=== PATIENT | female | born 1975 | race Caucasian/White ===

== ENCOUNTER 2017-09-15 22:36 | Observation (INO) | payer BC ==
[2017-09-15] MEDS ORDERED: Sodium Chloride 0.9% 1000 ML 1,000 ML IV STA (23:10)
[2017-09-15] MEDS ORDERED: Zofran 4 MG/2 ML VIAL IV ONE (23:10)
[2017-09-15] MEDS ORDERED: TORAdol 30 mg Injection IV ONE (23:10)
--- NOTE | 2017-09-15 23:15 | ERPHSYRPT ---
- History of Present Illness Time Seen by Provider: 09/15/17 23:03 Source: patient Exam Limitations: no limitations Patient Subjective Stated Complaint: Pt states "I think I have a kidney stone. My right lower back hurts and has hurt since . The pain comes and goes. " Triage Nursing Assessment: Pt alert and oriented X 3, skin pwd. PT ambulates with an upright steady gait, able to speak in clear full sentences. Physician History: 41 y/o female comes to the ER with complaints of right flank pain since . Pt describes the pain as sharp, intermittent, 8/10, with radiation to groin and not relieved by naproxen. Pt also admits to nausea but no vomiting, fever, chills, constipation or diarrhea. Pt does admit to having the sensation that she has to urinate and also has burning with urination. Pt has had a kidney stone in the past. Timing/Duration: day(s) Activites at Onset: none Quality: aching Onset Location: right flank Pain Radiation: groin Severity of Pain-Max: severe Severity of Pain-Current: severe Prior abdominal problems: none Sexual intercourse history: single partner Modifying Factors: Improves With: nothing Associated Symptoms: nausea Allergies/Adverse Reactions: cephalexin monohydrate [From Keflex] Allergy (Severe, Verified 06/14/16 14:46) Hives Iodinated Contrast- Oral and IV Dye [Iodinated Contrast Media - IV Dye] Allergy (Severe, Verified 06/14/16 14:46) Hives tramadol Allergy (Severe, Verified 06/14/16 14:46) Hives Home Medications: Alprazolam 1 mg [Xanax 1 mg] 1 tablet PO Q12H PRN PRN 08/04/15 [History] Citalopram Hydrobromide [Celexa] 40 mg PO DAILY 08/04/15 [History] Hx Tetanus, Diphtheria Vaccination/Date Given: Yes Hx Influenza Vaccination/Date Given: No Hx Pneumococcal Vaccination/Date Given: No - Review of Systems Constitutional: No Fever, No Chills Eyes: No Symptoms Ears, Nose, & Throat: No Symptoms Respiratory: No Cough, No Dyspnea Cardiac: No Chest Pain, No Edema, No Syncope Abdominal/Gastrointestinal: Nausea, No Abdominal Pain, No Vomiting, No Diarrhea Genitourinary Symptoms: Dysuria, Frequency, Urgency, Flank Pain, No Hematuria Musculoskeletal: Myalgias, No Back Pain, No Neck Pain Skin: No Rash Neurological: No Dizziness, No Focal Weakness, No Sensory Changes Psychological: No Symptoms Endocrine: No Symptoms All Other Systems: Reviewed and Negative - Past Medical History Pertinent Past Medical History: Yes Neurological History: No Pertinent History ENT History: No Pertinent History Cardiac History: No Pertinent History Respiratory History: No Pertinent History Endocrine Medical History: No Pertinent History Musculoskeletal History: No Pertinent History GI Medical History: No Pertinent History History: Other Psycho-Social History: Depression Female Reproductive Disorders: No Pertinent History - Past Surgical History Past Surgical History: Yes Neuro Surgical History: No Pertinent History Cardiac: No Pertinent History Respiratory: No Pertinent History Gastrointestinal: Cholecystectomy Genitourinary: Other Musculoskeletal: No Pertinent History Female Surgical History: Hysterectomy Other Surgical History: hysterectomy 2002 chol 2007 urinary stent 2008 - Social History Smoking Status: Current every day smoker How long have you smoked: 20 years Exposure to second hand smoke: Yes Drug Use: marijuana Patient Lives Alone: No - Female History Hx Last Menstrual Period: hysterectomy Hx Now: No - Nursing Vital Signs Nursing Vital Signs: Initial Vital Signs Temperature 99.5 F 09/15/17 22:43 Pulse Rate 72 09/15/17 22:43 Respiratory Rate 16 09/15/17 22:43 Blood Pressure 140/82 09/15/17 22:43 O2 Sat by Pulse Oximetry 98 09/15/17 22:43 Pain Scale Pain Intensity 2 - Physical Exam General Appearance: mild distress, alert Eye Exam: PERRL/EOMI, eyes nml inspection Ears, Nose, Throat Exam: normal ENT inspection, TMs normal, pharynx normal, moist mucous membranes Neck Exam: normal inspection, non-tender, supple, full range of motion Respiratory Exam: normal breath sounds, lungs clear, No respiratory distress Cardiovascular Exam: regular rate/rhythm, normal heart sounds, normal peripheral pulses Gastrointestinal/Abdomen Exam: soft, normal bowel sounds, No tenderness, No mass Back Exam: normal inspection, normal range of motion, CVA tenderness, No vertebral tenderness Extremity Exam: normal inspection, normal range of motion, pelvis stable Neurologic Exam: alert, oriented x 3, cooperative, market analyst II-XII nml as tested, normal mood/affect, sensation nml, No motor deficits Skin Exam: normal color, warm, dry Lymphatic Exam: No adenopathy SpO2: 98 Oxygen Delivery: Room Air - Course Nursing assessment & vital signs reviewed: Yes Ordered Tests: Active Orders 24 hr Category Date Time Status IV Insertion STAT Care 09/15/17 23:10 Active ABDOMEN AND PELVIS W/0 CONTRAS [CT] Stat Exams 09/15/17 23:11 Taken AMYLASE Stat Lab 09/15/17 23:00 Completed CBC W DIFF Stat Lab 09/15/17 23:00 Completed CMP Stat Lab 09/15/17 23:00 Completed HCG QUALITATIVE,SERUM Stat Lab 09/15/17 23:00 Completed LIPASE Stat Lab 09/15/17 23:00 Completed UA W/ MICROSCOPIC Stat Lab 09/15/17 00:52 Completed Medication Summary Discontinued Medications Generic Name Dose Route Start Last Admin Trade Name Freq PRN Reason Stop Dose Admin Sodium Chloride 1,000 mls @ 999 mls/hr 09/15/17 23:10 09/15/17 23:19 Sodium Chloride 0.9% 1000 Ml IV 09/16/17 00:10 999 mls/hr .Q1H1M STA Administration Sodium Chloride Confirm 09/15/17 23:18 Sodium Chloride 0.9% 1000 Ml Administered 09/15/17 23:19 Dose 1,000 mls @ ud .ROUTE .STK-MED ONE Ketorolac Tromethamine 30 mg 09/15/17 23:10 09/15/17 23:19 Toradol 30 Mg Injection IV 09/15/17 23:11 30 mg STAT ONE Administration Ketorolac Tromethamine Confirm 09/15/17 23:18 Toradol 30 Mg Injection Administered 09/15/17 23:19 Dose 30 mg .ROUTE .STK-MED ONE Morphine Sulfate 4 mg 09/15/17 23:59 09/16/17 00:16 Morphine Sulfate 4 Mg Inj IV 09/16/17 00:00 4 mg STAT ONE Administration Morphine Sulfate Confirm 09/16/17 00:14 Morphine Sulfate 4 Mg Inj Administered 09/16/17 00:15 Dose 4 mg .ROUTE .STK-MED ONE Ondansetron HCl 4 mg 09/15/17 23:10 09/15/17 23:19 Zofran 4 Mg/2 Ml Vial IV 09/15/17 23:11 4 mg STAT ONE Administration Ondansetron HCl Confirm 09/15/17 23:18 Zofran 4 Mg/2 Ml Vial Administered 09/15/17 23:19 Dose 4 mg .ROUTE .STK-MED ONE Potassium Chloride 40 meq 09/16/17 00:11 09/16/17 00:19 Klor Con 10 Meq PO 09/16/17 00:12 40 meq STAT ONE Administration Potassium Chloride Confirm 09/16/17 00:18 Klor Con 10 Meq Administered 09/16/17 00:19 Dose 40 meq PO .STK-MED ONE Lab/Rad Data: Laboratory Result Diagrams 09/15/17 23:00 09/15/17 23:00 Laboratory Results 09/15/17 09/15/17 09/15/17 Range/Units 23:00 23:00 23:00 WBC 8.4 (4.0-10.5) K/mm3 RBC 3.77 L (4.1-5.4) M/mm3 Hgb 11.6 L (12.0-16.0) gm/dl Hct 35.2 (35-47) % MCV 93.4 (78-100) fl MCH 30.7 (26-32) pg MCHC 33.0 (32-36) g/dl RDW 12.8 (11.5-14.0) % Plt Count 325 (150-450) K/mm3 MPV 9.4 (6-9.5) fl Gran % 50.6 (36.0-66.0) % Lymphocytes % 36.1 (24.0-44.0) % Monocytes % 9.8 (0.0-12.0) % Eosinophils % 3.0 (0.00-5.0) % Basophils % 0.5 (0.0-0.4) % Basophils # 0.04 (0-0.4) Sodium 142 (136-145) mEq/L Potassium 3.1 L (3.5-5.1) mEq/L Chloride 104 (98-107) mEq/L Carbon Dioxide 30.4 (21-32) mEq/L Anion Gap 10.3 (5-15) MEQ/L BUN 10 (9-20) mg/dL Creatinine 0.91 (0.55-1.30) mg/dl Estimated GFR > 60 ML/MIN Glucose 79 (70-110) MG/DL Calcium 8.3 L (8.5-10.1) mg/dL Total Bilirubin 0.20 (0.2-1.0) mg/dL AST 13 L (15-37) U/L ALT 14 (12-78) U/L Alkaline Phosphatase 92 (46-116) U/L Serum Total Protein 7.2 (6.4-8.2) gm/dL Albumin 3.9 (3.4-5.0) g/dL Amylase 39 (25-115) U/L Lipase 317 (73-393) U/L Serum , Qual NEGATIVE (Negative) Ur Collection Type Urine Color (YELLOW) Urine Appearance (CLEAR) Urine pH (5-6) Ur Specific [place] (1.005-1.025) Urine Protein (Negative) Urine Ketones (NEGATIVE) Urine Blood (0-5) Osman/ul Urine Nitrite (NEGATIVE) Urine Bilirubin (NEGATIVE) Urine Urobilinogen (0-1) mg/dL Ur Leukocyte Esterase (NEGATIVE) Urine Microscopic WBC (0-5) /HPF Ur Epithelial Cells (FEW) /HPF Urine Culture Reflexed (NO) Urine Glucose (NEGATIVE) mg/dL Specimen Received 09/15/17 Range/Units 00:52 WBC (4.0-10.5) K/mm3 RBC (4.1-5.4) M/mm3 Hgb (12.0-16.0) gm/dl Hct (35-47) % MCV (78-100) fl MCH (26-32) pg MCHC (32-36) g/dl RDW (11.5-14.0) % Plt Count (150-450) K/mm3 MPV (6-9.5) fl Gran % (36.0-66.0) % Lymphocytes % (24.0-44.0) % Monocytes % (0.0-12.0) % Eosinophils % (0.00-5.0) % Basophils % (0.0-0.4) % Basophils # (0-0.4) Sodium (136-145) mEq/L Potassium (3.5-5.1) mEq/L Chloride (98-107) mEq/L Carbon Dioxide (21-32) mEq/L Anion Gap (5-15) MEQ/L BUN (9-20) mg/dL Creatinine (0.55-1.30) mg/dl Estimated GFR ML/MIN Glucose (70-110) MG/DL Calcium (8.5-10.1) mg/dL Total Bilirubin (0.2-1.0) mg/dL AST (15-37) U/L ALT (12-78) U/L Alkaline Phosphatase (46-116) U/L Serum Total Protein (6.4-8.2) gm/dL Albumin (3.4-5.0) g/dL Amylase (25-115) U/L Lipase (73-393) U/L Serum , Qual (Negative) Ur Collection Type CCMS Urine Color YELLOW (YELLOW) Urine Appearance CLEAR (CLEAR) Urine pH 5.0 (5-6) Ur Specific [place] 1.010 (1.005-1.025) Urine Protein NEGATIVE (Negative) Urine Ketones NEGATIVE (NEGATIVE) Urine Blood NEGATIVE (0-5) Osman/ul Urine Nitrite NEGATIVE (NEGATIVE) Urine Bilirubin NEGATIVE (NEGATIVE) Urine Urobilinogen NORMAL (0-1) mg/dL Ur Leukocyte Esterase TRACE (NEGATIVE) Urine Microscopic WBC 0-2 (0-5) /HPF Ur Epithelial Cells FEW (FEW) /HPF Urine Culture Reflexed NO (NO) Urine Glucose NEGATIVE (NEGATIVE) mg/dL Specimen Received 09-16-17 0100 - Progress Progress: improved Progress Note: 09/16/17 01:[address] scan abd/pelvis shows moderately severe pneumatosis within the cecum. There is no evidence of mesenteric venous gas or portal venous gas. No white count and no fever. Pt has a K of 3.1 and will be given potassium replacement. The rest of the labs are within normal limits. Pt feels better after receiving morphine, zofran and NS fluids. Pt will be started on unasyn and has been admitted to Dr Clarke. Pt will be kept NPO 09/16/17 01:33 - Departure Time of Disposition: 01:33 Departure Disposition: In-patient Admission Clinical Impression: Pneumatosis intestinalis Condition: Stable Critical Care Time: Yes Critical Care Time(excluding separately billable procedures): 30-74 minutes Referrals: DIANA GARCIA [Primary Care Provider] -
[2017-09-15] MEDS ORDERED: Sodium Chloride 0.9% 1000 ML 1,000 ML ONE (23:18)
[2017-09-15] MEDS ORDERED: Zofran 4 MG/2 ML VIAL ONE (23:18)
[2017-09-15] MEDS ORDERED: TORAdol 30 mg Injection ONE (23:18)
[2017-09-15 23:25] LABS: BASOPHIL % 0.5 % (0.0-0.4); Basophil (Absolute #) 0.04 (0-0.4); Eosinophil (Absolute #) 0.25 (0-0.5); Granulocyte Absolute (ANC) 4.26 (1.4-6.9); Granulocytes % 50.6 % (36.0-66.0); Hematocrit 35.2 % (35-47); Hemoglobin 11.6 gm/dl (12.0-16.0); Lymphocyte (Absolute #) 3.03 (1.0-4.6); Lymphocytes % 36.1 % (24.0-44.0); Mean Cell Volume 93.4 fl (78-100); Mean Platelet Volume 9.4 fl (6-9.5); Monocyte (Absolute #) 0.82 (0.0-1.3); Monocytes % 9.8 % (0.0-12.0); Platelet Count 325 K/mm3 (150-450); Red Blood Count 3.77 M/mm3 (4.1-5.4); Red Cell Distribution Width 12.8 % (11.5-14.0); White Blood Count 8.4 K/mm3 (4.0-10.5)
[2017-09-15 23:26] LABS: Mean Corpuscular Hemoglobin 30.7 pg (26-32)
[2017-09-15 23:50] LABS: ALBUMIN 3.9 g/dL (3.4-5.0); ALKALINE PHOSPHATASE 92 U/L (46-116); AMYLASE 39 U/L (25-115); ANION GAP 10.3 MEQ/L (5-15); BLOOD UREA NITROGEN 10 mg/dL (9-20); CHLORIDE 104 mEq/L (98-107); Calcium 8.3 mg/dL (8.5-10.1); Carbon Dioxide 30.4 mEq/L (21-32); Creatinine 1 0.91 mg/dl (0.55-1.30); EST GLOMERULAR FILTRATION RATE > 60 ML/MIN; Glucose 79 MG/DL (70-110); LIPASE 317 U/L (73-393); Potassium 3.1 mEq/L (3.5-5.1); SGOT/AST 13 U/L (15-37); SGPT/ALT 14 U/L (12-78); SODIUM 142 mEq/L (136-145); Total Protein 7.2 gm/dL (6.4-8.2)
[2017-09-15] MEDS ORDERED: MORPHINE SULFATE 4 MG INJ IV ONE (23:59)
[2017-09-16] MEDS ORDERED: Klor Con 10 MEQ PO ONE ×2 (00:11→00:18)
[2017-09-16] MEDS ORDERED: MORPHINE SULFATE 4 MG INJ ONE ×2 (00:14→01:46)
[2017-09-16 01:07] LABS: Appearance CLEAR (CLEAR); Bilirubin NEGATIVE (NEGATIVE); Blood NEGATIVE Ery/ul (0-5); Glucose NEGATIVE (NEGATIVE); Ketones NEGATIVE (NEGATIVE); Leukocyte Esterase TRACE (NEGATIVE); Nitrite NEGATIVE (NEGATIVE); Protein,Urine Dip NEGATIVE (Negative); Urobilinogen NORMAL mg/dL (0-1)
[2017-09-16 01:08] LABS: Epithelial Cells FEW /HPF (FEW); WBC 0-2 /HPF (0-5)
[2017-09-16] MEDS ORDERED: Unasyn 3GM / NaCl 100ML 3 GM/100 ML IVPB IV STA (01:34)
[2017-09-16] MEDS ORDERED: MORPHINE SULFATE 4 MG INJ IV ONE (01:40)
[2017-09-16] MEDS ORDERED: Unasyn 3GM / NaCl 100ML 3 GM/100 ML IVPB ONE (01:47)
[2017-09-16] MEDS ORDERED: XANAX 1 MG PO ONE (02:30)
[2017-09-16] MEDS ORDERED: FLAGYL 500 MG IVPB 500 MG/100 ML BAG IV ONE ×2 (02:30→07:45)
[2017-09-16] MEDS: Sodium Chloride 0.9% 1000 ML 1,000 ML IV SCH ×2 (02:32→15:50)
[2017-09-16] MEDS: FLAGYL 500 MG IVPB 500 MG/100 ML BAG IV SCH ×4 (02:35→18:02)
[2017-09-16] MEDS: MORPHINE SULFATE 4 MG INJ IV PRN ×2 (04:19→10:52)
[2017-09-16 06:19] LABS: BASOPHIL % 0.4 % (0.0-0.4); Basophil (Absolute #) 0.03 (0-0.4); Eosinophil % 4.2 % (0.00-5.0); Eosinophil (Absolute #) 0.35 (0-0.5); Granulocyte Absolute (ANC) 4.02 (1.4-6.9); Granulocytes % 48.4 % (36.0-66.0); Hematocrit 35.1 % (35-47); Hemoglobin 11.4 gm/dl (12.0-16.0); Lymphocyte (Absolute #) 3.08 (1.0-4.6); Lymphocytes % 37.2 % (24.0-44.0); Mean Cell Volume 94.6 fl (78-100); Mean Corpuscular Hemoglobin 30.7 pg (26-32); Mean Corpuscular Hgb Concent. 32.5 g/dl (32-36); Mean Platelet Volume 11.4 fl (6-9.5); Monocyte (Absolute #) 0.81 (0.0-1.3); Monocytes % 9.8 % (0.0-12.0); Platelet Count 212 K/mm3 (150-450); Red Blood Count 3.71 M/mm3 (4.1-5.4); White Blood Count 8.3 K/mm3 (4.0-10.5)
[2017-09-16 06:26] LABS: ALBUMIN 3.5 g/dL (3.4-5.0); ALKALINE PHOSPHATASE 86 U/L (46-116); ANION GAP 8.6 MEQ/L (5-15); BLOOD UREA NITROGEN 10 mg/dL (9-20); CHLORIDE 108 mEq/L (98-107); Calcium 8.2 mg/dL (8.5-10.1); Creatinine 1 0.73 mg/dl (0.55-1.30); EST GLOMERULAR FILTRATION RATE > 60 ML/MIN; Glucose 91 MG/DL (70-110); SGOT/AST 15 U/L (15-37); SGPT/ALT 13 U/L (12-78); SODIUM 142 mEq/L (136-145); Total Protein 6.6 gm/dL (6.4-8.2)
[2017-09-16] MEDS: Unasyn 3GM / NaCl 100ML 3 GM/100 ML IVPB IV SCH ×4 (06:53→23:22)
[2017-09-16 07:29] LABS: Slide Review 1 YES
[2017-09-16] MEDS ORDERED: XANAX 1 MG PO PRN (08:18)
[2017-09-16] MEDS ORDERED: xanAX 0.5 MG PO PRN (08:25)
[2017-09-16] MEDS: ceLEXa 20 MG PO SCH (09:43)
[2017-09-16] MEDS ORDERED: NON-FORMULARY ITEM (Citalopram Hydrobromide [Celexa] 40 MG) PO SCH (10:00)
--- NOTE | 2017-09-16 10:53 | XRAY ---
Indication: Right flank/groin pain 3 days. Frequent urination. History of stones. Multiple contiguous axial images obtained through the abdomen and pelvis without contrast using renal stone protocol. Comparison: June 14, 2016. Lung bases demonstrate stable 4 mm left lower lobe noncalcified nodule presumed granulomatous. No infiltrate or effusion. Heart is not enlarged. Again no renal calculus or evidence for obstructive uropathy in either system. Previous hysterectomy, cholecystectomy, and reported appendectomy. No free fluid/air. Noncontrasted stomach and bowel loops appear nonobstructed. Ingested medication/pills in the stomach. There is mild scattered colonic fecal debris throughout. Stable tiny fatty umbilical hernia. Remaining liver, pancreas, spleen, adrenal glands, kidneys, ureters, and bladder appear unremarkable for noncontrast exam. Minimal aortoiliac calcifications without AAA. Osseous structures intact. Impression: 1. Again negative for renal calculus or evidence for obstructive uropathy. 2. There remains mild stasis without obstruction. 3. Stable tiny fatty umbilical hernia and left lower lobe noncalcified micronodule presumed granulomatous. 4. No new/acute intra-abdominal/pelvic abnormalities on this noncontrast exam. Comment: Preliminary interpretation was made by [facility] who reports cecal pneumatosis which I believe is normal bowel gas. Additionally there is no mesenteric or portal air to support pneumatosis. CTDI 27.39
[2017-09-16] MEDS: MORPHINE SULFATE 2 MG INJ IV PRN ×3 (14:23→23:51)
[2017-09-17] MEDS: FLAGYL 500 MG IVPB 500 MG/100 ML BAG IV SCH ×5 (00:19→23:09)
[2017-09-17] MEDS: Sodium Chloride 0.9% 1000 ML 1,000 ML IV SCH ×2 (03:41→21:28)
[2017-09-17] MEDS: MORPHINE SULFATE 2 MG INJ IV PRN ×5 (04:29→21:28)
[2017-09-17] MEDS: Unasyn 3GM / NaCl 100ML 3 GM/100 ML IVPB IV SCH ×2 (05:49→12:05)
[2017-09-17 05:53] LABS: Hematocrit 32.4 % (35-47); Hemoglobin 10.4 gm/dl (12.0-16.0); Mean Cell Volume 94.5 fl (78-100); Mean Corpuscular Hemoglobin 30.3 pg (26-32); Mean Corpuscular Hgb Concent. 32.1 g/dl (32-36); Mean Platelet Volume 9.5 fl (6-9.5); Platelet Count 254 K/mm3 (150-450); Red Blood Count 3.43 M/mm3 (4.1-5.4); Red Cell Distribution Width 12.7 % (11.5-14.0); White Blood Count 6.6 K/mm3 (4.0-10.5)
[2017-09-17] MEDS: ceLEXa 20 MG PO SCH (08:18)
[2017-09-17] MEDS: xanAX 0.5 MG PO PRN (09:04)
--- NOTE | 2017-09-17 10:12 | HP ---
ADMISSION DIAGNOSIS: Right lower quadrant abdominal pain with pneumatosis of the cecum on CT scan. HISTORY OF PRESENT ILLNESS: This 41 year-old patient was admitted through the emergency room as she has been complaining of some abdominal pain localizing in the right lower quadrant and towards the back for about three days prior to this hospital visit since and also some mild diarrhea. The patient also has been having some nausea. No vomiting. No fever or chills. The pain became progressively worse and presented to the emergency room for evaluation. CT scan showed some pneumatosis of the cecum but no air within the whole system. No free air. No free fluid. She was admitted for IV antibiotics, pain management and observation. PAST MEDICAL HISTORY: Overall unremarkable. She denies any cardiovascular, neurological, or GI symptoms. PAST SURGICAL HISTORY: Open appendectomy years and years ago. She also had a hysterectomy. ALLERGIES: DENIES ALLERGIES TO MEDICATIONS. PHYSICAL EXAMINATION: She is alert, oriented. HEENT: Pupils equal and normal reactive. NECK: Supple. HEART: Regular rhythm. ABDOMEN: Slightly tender in the right lower quadrant. There is no rebound. No peritoneal signs. EXTREMITIES: Within normal limits. No pedal edema. IMPRESSION: Pneumatosis of the cecum by CT findings, this could be due to colitis with gut forming bacteria but at this point in time there are no peritoneal signs, no signs of perforation. We have started her on Unasyn and Flagyl IV. I think it would be okay to start her on clear liquid diet in the morning. No immediate surgical intervention is needed. Her white blood cell count is fairly normal, will repeat the CBC in the a.m.
[2017-09-17] MEDS: Zosyn 3.375GM/100 Ml D5W 3.375 GM/100 ML IVPB IV SCH (19:07)
[2017-09-18] MEDS: MORPHINE SULFATE 2 MG INJ IV PRN ×5 (00:05→17:20)
[2017-09-18] MEDS: Zosyn 3.375GM/100 Ml D5W 3.375 GM/100 ML IVPB IV SCH ×4 (00:06→18:01)
[2017-09-18 05:30] LABS: Hematocrit 32.9 % (35-47); Hemoglobin 10.9 gm/dl (12.0-16.0); Mean Cell Volume 92.9 fl (78-100); Mean Corpuscular Hgb Concent. 33.1 g/dl (32-36); Mean Platelet Volume 9.9 fl (6-9.5); Platelet Count 257 K/mm3 (150-450); Red Blood Count 3.54 M/mm3 (4.1-5.4); Red Cell Distribution Width 12.5 % (11.5-14.0)
[2017-09-18 05:36] LABS: Mean Corpuscular Hemoglobin 30.7 pg (26-32)
[2017-09-18] MEDS: FLAGYL 500 MG IVPB 500 MG/100 ML BAG IV SCH ×3 (06:07→17:21)
[2017-09-18] MEDS: ceLEXa 20 MG PO SCH (08:19)
[2017-09-18] MEDS: xanAX 0.5 MG PO PRN (08:19)
[2017-09-18] MEDS: Sodium Chloride 0.9% 1000 ML 1,000 ML IV SCH (08:30)
[2017-09-18 19:42] VITALS: BP 136/76; PULSE 56; O2SAT 98
== END 2017-09-18 20:35 | disposition home or self-care (01) ==
LOC: ED 22:36 → MED SURG 09-16 02:01
PROVIDERS: ADMIT Surgery; ATTEND Surgery
DX: K63.89 Other specified diseases of intestine (principal)
CPT/HCPCS: 36000; 36415; 74176; 80053; 81000; 82150; 83605; 83690; 84703; 85025; 85027; 96360; 96361; 96374; 96375; 99285; G0378; J0295; J1885; J2270; J2405; J2543; A9270-GY

== ENCOUNTER 2018-02-26 12:10 | Emergency (ER) | payer BC ==
[2018-02-26] MEDS ORDERED: Zofran 4 MG/2 ML VIAL IV ONE (12:39)
[2018-02-26] MEDS ORDERED: Sodium Chloride 0.9% 1000 ML 1,000 ML IV STA (12:39)
[2018-02-26] MEDS ORDERED: TORAdol 30 mg Injection IV ONE (12:39)
[2018-02-26] MEDS ORDERED: Sodium Chloride 0.9% 1000 ML 1,000 ML ONE (12:45)
[2018-02-26] MEDS ORDERED: TORAdol 30 mg Injection ONE (12:45)
[2018-02-26] MEDS ORDERED: Zofran 4 MG/2 ML VIAL ONE (12:45)
--- NOTE | 2018-02-26 12:45 | ERPHSYRPT ---
- History of Present Illness Time Seen by Provider: 02/26/18 12:34 Historian: patient Exam Limitations: no limitations Patient Subjective Stated Complaint: Abdominal/back pain Triage Nursing Assessment: Patient c/o abdominal pain radiating to her back 6/ 10 pain scale. Patient abdomen soft and tender. Patient reports diarrhea yesterday. Patient states pain is worse when she lays on right side. Physician History: This is a 42-year-old white female with history of depression arrives with complaint of pain in her right flank radiating to right upper quadrant symptoms for 5 days. She denies any dysuria hematuria no melena no hematochezia no fevers no vomiting. Past medical history includes depression. Past surgical history includes cholecystectomy hysterectomy urinary stents and appendectomy. Social history positive for occasional alcohol positive tobacco use she admits to marijuana use. Timing/Duration: day(s) (5days) Activities at Onset: none Quality: aching Abdominal Pain Onset Location: RUQ, flank (right flank) Pain Radiation: no radiation Severity of Pain-Max: moderate Severity of Pain-Current: moderate Modifying Factors: Improves With: nothing Associated Symptoms: back (Right flank pain), No chest pain, No diaphoresis, No diarrhea, No fever/chills, No fatigue, No headache, No heartburn, No loss of appetite, No nausea, No neck pain, No rash, No shortness of breath, No syncope, No vomiting, No weakness Previous symptoms: same symptoms as today (patient was seen earlier this year and thought to have colitis on virtual read patient was essentially when reviewed by our radilolgist patient was kept on observation and discharged the following day.) Allergies/Adverse Reactions: cephalexin monohydrate [From Keflex] Allergy (Severe, Verified 09/16/17 02:38) Hives Iodinated Contrast- Oral and IV Dye [Iodinated Contrast Media - IV Dye] Allergy (Severe, Verified 09/16/17 02:38) Hives tramadol Allergy (Severe, Verified 09/16/17 02:38) Hives Home Medications: Alprazolam 1 mg [Xanax 1 mg] 0.5 tablet PO Q12H PRN PRN 08/04/15 [History] Citalopram Hydrobromide [Celexa] 40 mg PO DAILY 08/04/15 [History] Hx Tetanus, Diphtheria Vaccination/Date Given: Yes Hx Influenza Vaccination/Date Given: No Hx Pneumococcal Vaccination/Date Given: Yes - Review of Systems Constitutional: No Fever, No Chills Eyes: No Symptoms Ears, Nose, & Throat: No Symptoms Respiratory: No Cough, No Dyspnea Cardiac: No Chest Pain, No Edema, No Syncope Abdominal/Gastrointestinal: No Symptoms, Abdominal Pain (right flank pain), No Nausea, No Vomiting, No Diarrhea, No Constipation, No Hematemesis, No Hematochezia, No Melena Genitourinary Symptoms: Flank Pain (right flank pain), No Dysuria, No Frequency , No Hematuria, No Hesitancy, No Incontinence, No Urgency, No Urinary Retention , No , No Vaginal Discharge Musculoskeletal: Back Pain (right flank pain), No Arthralgias, No Neck Pain, No Deformity, No Fall, No Injury, No Joint Redness, No Joint Pain, No Joint Swelling, No Myalgias Skin: No Rash Neurological: No Dizziness, No Focal Weakness, No Sensory Changes Psychological: No Symptoms Endocrine: No Symptoms All Other Systems: Reviewed and Negative - Past Medical History Pertinent Past Medical History: Yes Neurological History: No Pertinent History ENT History: No Pertinent History Cardiac History: No Pertinent History Respiratory History: No Pertinent History Endocrine Medical History: No Pertinent History Musculoskeletal History: No Pertinent History GI Medical History: No Pertinent History History: Other Psycho-Social History: Depression Female Reproductive Disorders: No Pertinent History Other Medical History: kidney stones, UTIs - Past Surgical History Past Surgical History: Yes Neuro Surgical History: No Pertinent History Cardiac: No Pertinent History Respiratory: No Pertinent History Gastrointestinal: Cholecystectomy Genitourinary: Other Musculoskeletal: No Pertinent History Female Surgical History: Hysterectomy Other Surgical History: hysterectomy 2002 chol 2007 urinary stent 2008. cyst on bone on eyebrow - Social History Smoking Status: Current every day smoker How long have you smoked: 15 years Exposure to second hand smoke: No Drug Use: marijuana Patient Lives Alone: No - Female History Hx Last Menstrual Period: Hyserectomy in 2002 Hx Now: No - Nursing Vital Signs Nursing Vital Signs: Initial Vital Signs Temperature 98.4 F 02/26/18 12:20 Pulse Rate 86 02/26/18 12:20 Respiratory Rate 16 02/26/18 12:20 O2 Sat by Pulse Oximetry 97 02/26/18 12:20 Pain Scale Pain Intensity 7 - Physical Exam General Appearance: no apparent distress, alert, anxiety (mildly anxious) Eye Exam: PERRL/EOMI, eyes nml inspection Ears, Nose, Throat Exam: normal ENT inspection, pharynx normal, moist mucous membranes Neck Exam: normal inspection, non-tender, supple, full range of motion Respiratory Exam: normal breath sounds, lungs clear, No respiratory distress Cardiovascular Exam: regular rate/rhythm, normal heart sounds, normal peripheral pulses, capillary refill <2 sec Gastrointestinal/Abdomen Exam: soft, normal bowel sounds, tenderness (right upper quadrant tenderness), No distention, No mass, No guarding Back Exam: normal inspection, normal range of motion, CVA tenderness (Right flank tenderness), No vertebral tenderness Extremity Exam: normal inspection, normal range of motion, pelvis stable Neurologic Exam: alert, oriented x 3, 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, 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, normal mood/affect, nml cerebellar function, sensation nml, No motor deficits Skin Exam: normal color, warm, dry SpO2 Interpretation: normal (97%) SpO2: 97 Oxygen Delivery: Room Air Ordered Tests: Active Orders 24 hr Category Date Time Status AMYLASE Stat Lab 02/26/18 13:09 Completed CBC W DIFF Stat Lab 02/26/18 13:09 Completed CMP Stat Lab 02/26/18 13:09 Completed LIPASE Stat Lab 02/26/18 13:09 Completed UA W/ MICROSCOPIC Stat Lab 02/26/18 13:09 Completed Urine Triage Profile Stat Lab 02/26/18 13:09 Completed Medication Summary Discontinued Medications Generic Name Dose Route Start Last Admin Trade Name Freq PRN Reason Stop Dose Admin Sodium Chloride 1,000 mls @ 999 mls/hr 02/26/18 12:39 02/26/18 12:55 Sodium Chloride 0.9% 1000 Ml IV 02/26/18 13:39 999 mls/hr .Q1H1M STA Administration Sodium Chloride Confirm 02/26/18 12:45 Sodium Chloride 0.9% 1000 Ml Administered 02/26/18 12:46 Dose 1,000 mls @ ud .ROUTE .STK-MED ONE Ketorolac Tromethamine 30 mg 02/26/18 12:39 02/26/18 12:54 Toradol 30 Mg Injection IV 02/26/18 12:40 30 mg STAT ONE Administration Ketorolac Tromethamine Confirm 02/26/18 12:45 Toradol 30 Mg Injection Administered 02/26/18 12:46 Dose 30 mg .ROUTE .STK-MED ONE Ondansetron HCl 4 mg 02/26/18 12:39 02/26/18 12:55 Zofran 4 Mg/2 Ml Vial IV 02/26/18 12:40 4 mg STAT ONE Administration Ondansetron HCl Confirm 02/26/18 12:45 Zofran 4 Mg/2 Ml Vial Administered 02/26/18 12:46 Dose 4 mg .ROUTE .STK-MED ONE Lab/Rad Data: Laboratory Result Diagrams 02/26/18 13:09 02/26/18 13:09 Laboratory Results 02/26/18 02/26/18 02/26/18 Range/Units 13:09 13:09 13:09 WBC (4.0-10.5) K/mm3 RBC (4.1-5.4) M/mm3 Hgb (12.0-16.0) gm/dl Hct (35-47) % MCV (78-100) fl MCH (26-32) pg MCHC (32-36) g/dl RDW (11.5-14.0) % Plt Count (150-450) K/mm3 MPV (6-9.5) fl Gran % (36.0-66.0) % Eos # (Auto) (0-0.5) Absolute Lymphs (auto) (1.0-4.6) Absolute Monos (auto) (0.0-1.3) Lymphocytes % (24.0-44.0) % Monocytes % (0.0-12.0) % Eosinophils % (0.00-5.0) % Basophils % (0.0-0.4) % Absolute Granulocytes (1.4-6.9) Basophils # (0-0.4) Sodium 143 (137-145) mmol/L Potassium 3.6 (3.5-5.1) mmol/L Chloride 108 H (98-107) mmol/L Carbon Dioxide 27 (22-30) mmol/L Anion Gap 12.4 (5-15) MEQ/L BUN 14 (7-17) mg/dL Creatinine 0.60 (0.52-1.04) mg/dL Estimated GFR > 60.0 ML/MIN Glucose 101 (74-106) mg/dL Calcium 9.1 (8.4-10.2) mg/dL Total Bilirubin 0.60 (0.2-1.3) mg/dL AST 19 (14-36) U/L ALT 16 (0-35) U/L Alkaline Phosphatase 95 (38-126) U/L Serum Total Protein 7.2 (6.3-8.2) g/dL Albumin 4.4 (3.5-5.0) g/dL Amylase 48 (30-110) U/L Lipase 88 (23-300) U/L Ur Collection Type CLEAN CATCH Urine Color YELLOW (YELLOW) Urine Appearance CLEAR (CLEAR) Urine pH 5.0 (5-6) Ur Specific [place] 1.020 (1.005-1.025) Urine Protein NEGATIVE (Negative) Urine Ketones NEGATIVE (NEGATIVE) Urine Blood 50 (0-5) Osman/ul Urine Nitrite NEGATIVE (NEGATIVE) Urine Bilirubin NEGATIVE (NEGATIVE) Urine Urobilinogen NORMAL (0-1) mg/dL Ur Leukocyte Esterase NEGATIVE (NEGATIVE) Urine Microscopic RBC 0-2 (0-2) /HPF Urine Microscopic WBC 0-2 (0-5) /HPF Ur Epithelial Cells FEW (FEW) /HPF Urine Bacteria FEW (NEGATIVE) /HPF Urine Mucus SLIGHT (NEGATIVE) /HPF Urine Culture Reflexed NO (NO) Urine Glucose NEGATIVE (NEGATIVE) mg/dL Urine Opiates Level POSITIVE (NEGATIVE) Ur Methadone NEGATIVE (NEGATIVE) Urine Barbiturates NEGATIVE (NEGATIVE) Ur Phencyclidine (PCP) NEGATIVE (NEGATIVE) Urine Amphetamine NEGATIVE (NEGATIVE) U Benzodiazepine Level NEGATIVE (NEGATIVE) Urine Cocaine NEGATIVE (NEGATIVE) Urine Marijuana (THC) POSITIVE (NEGATIVE) Specimen Received 02-26-18 1300 02/26/18 Range/Units 13:09 WBC 7.9 (4.0-10.5) K/mm3 RBC 4.29 (4.1-5.4) M/mm3 Hgb 13.5 (12.0-16.0) gm/dl Hct 38.9 (35-47) % MCV 90.7 (78-100) fl MCH 31.5 (26-32) pg MCHC 34.7 (32-36) g/dl RDW 12.5 (11.5-14.0) % Plt Count 287 (150-450) K/mm3 MPV 9.4 (6-9.5) fl Gran % 67.5 H (36.0-66.0) % Eos # (Auto) 0.13 (0-0.5) Absolute Lymphs (auto) 1.85 (1.0-4.6) Absolute Monos (auto) 0.58 (0.0-1.3) Lymphocytes % 23.3 L (24.0-44.0) % Monocytes % 7.3 (0.0-12.0) % Eosinophils % 1.6 (0.00-5.0) % Basophils % 0.3 (0.0-0.4) % Absolute Granulocytes 5.36 (1.4-6.9) Basophils # 0.02 (0-0.4) Sodium (137-145) mmol/L Potassium (3.5-5.1) mmol/L Chloride (98-107) mmol/L Carbon Dioxide (22-30) mmol/L Anion Gap (5-15) MEQ/L BUN (7-17) mg/dL Creatinine (0.52-1.04) mg/dL Estimated GFR ML/MIN Glucose (74-106) mg/dL Calcium (8.4-10.2) mg/dL Total Bilirubin (0.2-1.3) mg/dL AST (14-36) U/L ALT (0-35) U/L Alkaline Phosphatase (38-126) U/L Serum Total Protein (6.3-8.2) g/dL Albumin (3.5-5.0) g/dL Amylase (30-110) U/L Lipase (23-300) U/L Ur Collection Type Urine Color (YELLOW) Urine Appearance (CLEAR) Urine pH (5-6) Ur Specific [place] (1.005-1.025) Urine Protein (Negative) Urine Ketones (NEGATIVE) Urine Blood (0-5) Osman/ul Urine Nitrite (NEGATIVE) Urine Bilirubin (NEGATIVE) Urine Urobilinogen (0-1) mg/dL Ur Leukocyte Esterase (NEGATIVE) Urine Microscopic RBC (0-2) /HPF Urine Microscopic WBC (0-5) /HPF Ur Epithelial Cells (FEW) /HPF Urine Bacteria (NEGATIVE) /HPF Urine Mucus (NEGATIVE) /HPF Urine Culture Reflexed (NO) Urine Glucose (NEGATIVE) mg/dL Urine Opiates Level (NEGATIVE) Ur Methadone (NEGATIVE) Urine Barbiturates (NEGATIVE) Ur Phencyclidine (PCP) (NEGATIVE) Urine Amphetamine (NEGATIVE) U Benzodiazepine Level (NEGATIVE) Urine Cocaine (NEGATIVE) Urine Marijuana (THC) (NEGATIVE) Specimen Received - Progress Progress: improved Progress Note: 02/26/18 14:11 42-year-old white female arrives with complaint of pain in the right flank radiating to right upper quadrant symptoms for several days. Patient is improved after receiving IV Toradol Zofran and normal saline. Labs urinalysis essentially normal chemistry essentially normal CBC essentially normal amylase and lipase normal Urine drug screen positive for opiates and marijuana. Will go ahead and place patient on Naprosyn 500 mg orally twice a day as needed for pain, Phenergan 12.5 mg orally as needed for pain. Plenty of fluids. Clear fluids only 24-48 hours if abdominal pain follow-up with her family doctor. - Departure Time of Disposition: 14:13 Departure Disposition: Home Clinical Impression: Right flank pain, Right upper quadrant abdominal pain Condition: Fair Critical Care Time: No Referrals: JARAD TEJADA [ACTIVE STAFF] - Additional Instructions: Return home. Plenty of fluids. Clear fluids only 24-48 hours if abdominal pain nausea, or vomiting . Naprosyn 500 mg orally twice a day with food as needed for pain #10. Phenergan 25 mg one orally every 4-6 hours as needed for pain or nausea and vomiting. Follow-up with your family doctor. Return for acute distress or for severe symptoms. Prescriptions: Naproxen 500 mg [Naprosyn 500 MG] 500 mg PO BID #10 tablet Promethazine HCl 25 mg [Phenergan 25 mg] 25 mg PO Q4-6HPRN PRN #12 tablet PRN Reason: nausea, vomiting, or abd pain
[2018-02-26 13:09] LABS: BASOPHIL % 0.3 % (0.0-0.4); Basophil (Absolute #) 0.02 (0-0.4); Eosinophil % 1.6 % (0.00-5.0); Eosinophil (Absolute #) 0.13 (0-0.5); Granulocyte Absolute (ANC) 5.36 (1.4-6.9); Granulocytes % 67.5 % (36.0-66.0); Hematocrit 38.9 % (35-47); Hemoglobin 13.5 gm/dl (12.0-16.0); Lymphocyte (Absolute #) 1.85 (1.0-4.6); Lymphocytes % 23.3 % (24.0-44.0); Mean Cell Volume 90.7 fl (78-100); Mean Corpuscular Hemoglobin 31.5 pg (26-32); Mean Corpuscular Hgb Concent. 34.7 g/dl (32-36); Mean Platelet Volume 9.4 fl (6-9.5); Monocyte (Absolute #) 0.58 (0.0-1.3); Monocytes % 7.3 % (0.0-12.0); Platelet Count 287 K/mm3 (150-450); Red Blood Count 4.29 M/mm3 (4.1-5.4); Red Cell Distribution Width 12.5 % (11.5-14.0); White Blood Count 7.9 K/mm3 (4.0-10.5)
[2018-02-26 13:29] LABS: ALBUMIN 4.4 g/dL (3.5-5.0); ALKALINE PHOSPHATASE 95 U/L (38-126); AMYLASE 48 U/L (30-110); ANION GAP 12.4 MEQ/L (5-15); BLOOD UREA NITROGEN 14 mg/dL (7-17); CHLORIDE 108 mmol/L (98-107); Calcium 9.1 mg/dL (8.4-10.2); Carbon Dioxide 27 mmol/L (22-30); Glucose 101 mg/dL (74-106); LIPASE 88 U/L (23-300); Potassium 3.6 mmol/L (3.5-5.1); SGOT/AST 19 U/L (14-36); SGPT/ALT 16 U/L (0-35); SODIUM 143 mmol/L (137-145); Total Protein 7.2 g/dL (6.3-8.2)
[2018-02-26 13:51] LABS: Appearance CLEAR (CLEAR); Glucose NEGATIVE (NEGATIVE); Ketones NEGATIVE (NEGATIVE); Leukocyte Esterase NEGATIVE (NEGATIVE); Nitrite NEGATIVE (NEGATIVE); Protein,Urine Dip NEGATIVE (Negative)
[2018-02-26 13:52] LABS: Bacteria FEW /HPF (NEGATIVE); Bilirubin NEGATIVE (NEGATIVE); Blood 50 Ery/ul (0-5); Epithelial Cells FEW /HPF (FEW); Mucus SLIGHT /HPF (NEGATIVE); RBC 0-2 /HPF (0-2); Urobilinogen NORMAL mg/dL (0-1); WBC 0-2 /HPF (0-5)
[2018-02-26 13:57] LABS: Amphetamine,Urine NEGATIVE (NEGATIVE); Barbiturate,Urine NEGATIVE (NEGATIVE); Benzodiazepine,Urine NEGATIVE (NEGATIVE); Cocaine,Urine NEGATIVE (NEGATIVE); Methadone,Urine NEGATIVE (NEGATIVE); Opiate,Urine POSITIVE (NEGATIVE); PCP,Urine NEGATIVE (NEGATIVE); THC,Urine POSITIVE (NEGATIVE)
[2018-02-26 14:09] VITALS: BP 100/58; PULSE 67; O2SAT 97
== END 2018-02-26 14:51 | disposition home or self-care (01) ==
LOC: ED 12:10
DX: R10.11 Right upper quadrant pain (principal); R10.9 Unspecified abdominal pain
CPT/HCPCS: 36000; 36415; 80053; 80307; 81000; 82150; 83690; 85025; 96360; 96374; 96375; 99284; J1885; J2405

== ENCOUNTER 2020-12-12 09:39 | Emergency (ER) | payer BC ==
--- NOTE | 2020-12-12 10:16 | ERPHSYRPT ---
- History of Present Illness Time Seen by Provider: 12/12/20 10:00 Source: patient Exam Limitations: no limitations Patient Subjective Stated Complaint: Hand/arm injury Triage Nursing Assessment: Patient ambulated back to ED and transferred self to bed. Patient A+O X3. Patient's skin pink, warm and dry. Patient complains of left hand/forearm pain 8/10 constant aching, intermittent sharp pain. Patient stated she was intoxicated and got on a skateboard and fell and put her left hand out to catch her fall. Patient has swelling noted to left hand/forearm. Physician History: Patient is a 45-year-old female who had some drinks last night and was using a skateboard when she fell. She did not notice any apparent injury at the time but through the night the arm awoke her from sleep with severe pain in the wrist area radiating to the elbow. She denies other injury or pain. Occurred: other (Last night) Method of Injury: fell Quality: throbbing Severity of Pain-Max: moderate Severity of Pain-Current: moderate Extremities Pain Location: forearm: left, wrist: left, hand: left (Left forearm wrist and hand are all painful and tender decreased range of motion neurovascular tendon however are intact. Is no obvious deformity to any of the 3 areas.) Modifying Factors: Improves With: movement Associated Symptoms: none Allergies/Adverse Reactions: cephalexin monohydrate [From Keflex] Allergy (Severe, Verified 12/12/20 09:48) Hives Iodinated Contrast Media [Iodinated Contrast Media - IV Dye] Allergy (Severe, Verified 12/12/20 09:48) Hives tramadol Allergy (Severe, Verified 12/12/20 09:48) Hives Home Medications: ALPRAZolam 1 MG [Xanax 1 mg] 0.5 tablet PO Q12H PRN PRN 08/04/15 [History] Citalopram Hydrobromide [Celexa] 40 mg PO DAILY 08/04/15 [History] Hx Tetanus, Diphtheria Vaccination/Date Given: Yes Hx Influenza Vaccination/Date Given: No Hx Pneumococcal Vaccination/Date Given: No Immunizations Up to Date: Yes Travel Risk - International Travel Have you traveled outside of the country in past 3 weeks: No - Coronavirus Screening Are you exhibiting any of the following symptoms?: No Close contact with a COVID-19 positive Pt in past 14-21 Days: No - Vaccine Status Have you recieved a Covid-19 vaccination: No - Past Medical History Pertinent Past Medical History: Yes Neurological History: No Pertinent History ENT History: No Pertinent History Cardiac History: No Pertinent History Respiratory History: No Pertinent History Endocrine Medical History: No Pertinent History Musculoskeletal History: No Pertinent History GI Medical History: No Pertinent History History: Other Psycho-Social History: Depression Female Reproductive Disorders: No Pertinent History Other Medical History: kidney stones, UTIs - Past Surgical History Past Surgical History: Yes Neuro Surgical History: No Pertinent History Cardiac: No Pertinent History Respiratory: No Pertinent History Gastrointestinal: Cholecystectomy Genitourinary: Other Musculoskeletal: No Pertinent History Female Surgical History: Hysterectomy Other Surgical History: hysterectomy 2003 chol 2007 urinary stent 2007. cyst on bone on eyebrow - Social History Smoking Status: Current every day smoker How long have you smoked: 15 years Exposure to second hand smoke: No Drug Use: marijuana Patient Lives Alone: No - Female History Hx Last Menstrual Period: hysterectomy 2003 Hx Now: No - Nursing Vital Signs Nursing Vital Signs: Initial Vital Signs Temperature 99.2 F 12/12/20 09:49 Pulse Rate 82 12/12/20 09:49 Respiratory Rate 18 12/12/20 09:49 Blood Pressure 176/108 12/12/20 09:49 O2 Sat by Pulse Oximetry 99 12/12/20 09:49 Pain Scale Pain Intensity 8 - Physical Exam General Appearance: alert Eyes, Ears, Nose, Throat Exam: moist mucous membranes Neck Exam: non-tender, supple Cardiovascular/Respiratory Exam: chest non-tender, normal breath sounds, regular rate/rhythm, no respiratory distress Abdominal Exam: non-tender, No guarding Back Exam: normal inspection, No vertebral tenderness Shoulder Exam: normal inspection, non-tender Elbow/Forearm Exam: bone tenderness, limited ROM, pain, soft tissue tenderness Wrist Exam: bone tenderness, limited ROM, pain, soft tissue tenderness Hand Exam: bone tenderness, limited ROM, soft tissue tenderness, stiffness Neuro/Tendon Exam: normal sensation, normal motor functions Mental Status Exam: alert, oriented x 3, cooperative Skin Exam: normal color, warm, dry SpO2 Interpretation: normal SpO2: 99 O2 Delivery: Room Air - Course Nursing assessment & vital signs reviewed: Yes - Radiology Exams Forearm X-ray Interpretation: Interpreted by me (X-rays of the left forearm wrist and hand all negative for fracture or dislocation.) Ordered Tests: Active Orders 24 hr Category Date Time Status FOREARM Stat Exams 12/12/20 09:50 Taken HAND (MINIMUM 3 VIEWS) Stat Exams 12/12/20 09:50 Taken - Progress Progress: improved, pain not gone completely - Departure Departure Disposition: Home Clinical Impression: Left wrist sprain Condition: Stable Critical Care Time: No Referrals: DIANA GARCIA [Primary Care Provider] - Instructions: Common Wrist Injuries (DC) Prescriptions: Oxycodone HCl/Acetaminophen [Percocet 5-325 mg Tablet] 1 each PO Q6H PRN PRN 3 Days #12 tablet MDD 4 PRN Reason: Pain
[2020-12-12 10:41] VITALS: BP 158/88; PULSE 96; O2SAT 98
--- NOTE | 2020-12-12 21:59 | XRAY ---
Indication: Pain following skateboard injury. Comparison: None 2 view left forearm demonstrates punctate ossification overlying distal radioulnar joint either fracture fragment of uncertain chronicity versus degenerative. Widened scapholunate interval concerning for underlying ligamentous tear. No other bony, articular, or soft tissue abnormalities.
--- NOTE | 2020-12-12 22:00 | XRAY ---
Indication: Pain following skateboard injury. Comparison: None 3 view left hand obtained. No bony, articular, or soft tissue abnormalities.
== END 2020-12-12 10:40 | disposition home or self-care (01) ==
LOC: ED 09:39
DX: S63.502A Unspecified sprain of left wrist, initial encounter (principal); W01.0XXA Fall on same level from slipping, tripping and stumbling without subsequent striking against object, initial encounter; Y93.51 Activity, roller skating (inline) and skateboarding; Y92.89 Other specified places as the place of occurrence of the external cause; M25.532 Pain in left wrist
CPT/HCPCS: 73090; 73130; 99284; A4570

== ENCOUNTER 2021-01-17 08:14 | Emergency (ER) | payer BC ==
--- NOTE | 2021-01-17 08:30 | ERPHSYRPT ---
- History of Present Illness Time Seen by Provider: 01/17/21 08:22 Source: patient Exam Limitations: no limitations Patient Subjective Stated Complaint: sore throat, R ear pain and swelling. Triage Nursing Assessment: . Physician History: 45 years old female presented in the ER with chief complaint of sore throat gradually worsening for the last 3 to 4 days. More on the right side with associated swelling of right upper neck and pain shooting in the right ear. Minimal difficulty swallowing because of pain but more difficulty breathing. Denies any sick contact. No fever or chills reported. Timing/Duration: day(s) (3), constant, gradual onset, worse Cough Quality/Degree: no cough Associated Symptoms: earache, sore throat, No fever, No chest pain/soreness, No muscle aches, No shortness of breath, No sinus infection Allergies/Adverse Reactions: cephalexin monohydrate [From Keflex] Allergy (Severe, Verified 01/17/21 08:27) Hives Iodinated Contrast Media [Iodinated Contrast Media - IV Dye] Allergy (Severe, Verified 01/17/21 08:27) Hives tramadol Allergy (Severe, Verified 01/17/21 08:27) Hives Home Medications: ALPRAZolam 1 MG [Xanax 1 mg] 0.5 tablet PO Q12H PRN PRN 08/04/15 [History] Citalopram Hydrobromide [Celexa] 40 mg PO DAILY 08/04/15 [History] Hx Tetanus, Diphtheria Vaccination/Date Given: Yes Hx Influenza Vaccination/Date Given: Yes Hx Pneumococcal Vaccination/Date Given: No Immunizations Up to Date: Yes Travel Risk - International Travel Have you traveled outside of the country in past 3 weeks: No - Coronavirus Screening Are you exhibiting any of the following symptoms?: No Close contact with a COVID-19 positive Pt in past 14-21 Days: No - Vaccine Status Have you recieved a Covid-19 vaccination: No - Review of Systems Constitutional: No Symptoms Eyes: No Symptoms Ears, Nose, & Throat: Throat Pain, Throat Swelling, Painful Swallowing Respiratory: No Symptoms Cardiac: No Symptoms Abdominal/Gastrointestinal: No Symptoms Genitourinary Symptoms: No Symptoms Musculoskeletal: No Symptoms Neurological: No Symptoms Psychological: No Symptoms Endocrine: No Symptoms - Past Medical History Pertinent Past Medical History: Yes Neurological History: No Pertinent History ENT History: No Pertinent History Cardiac History: No Pertinent History Respiratory History: No Pertinent History Endocrine Medical History: No Pertinent History Musculoskeletal History: No Pertinent History GI Medical History: No Pertinent History History: Other Psycho-Social History: Depression Female Reproductive Disorders: No Pertinent History Other Medical History: kidney stones, UTIs - Past Surgical History Past Surgical History: Yes Neuro Surgical History: No Pertinent History Cardiac: No Pertinent History Respiratory: No Pertinent History Gastrointestinal: Cholecystectomy Genitourinary: Other Musculoskeletal: No Pertinent History Female Surgical History: Hysterectomy Other Surgical History: hysterectomy 2004 chol 2007 urinary stent 2008. cyst on bone on eyebrow - Social History Smoking Status: Current every day smoker How long have you smoked: 15 years Exposure to second hand smoke: No Drug Use: none Patient Lives Alone: No - Female History Hx Now: No - Nursing Vital Signs Nursing Vital Signs: Initial Vital Signs Temperature 97.1 F 01/17/21 08:19 Pulse Rate 113 H 01/17/21 08:19 Respiratory Rate 18 01/17/21 08:19 Blood Pressure 173/110 01/17/21 08:19 O2 Sat by Pulse Oximetry 95 01/17/21 08:19 Pain Scale Pain Intensity 5 - Physical Exam General Appearance: no apparent distress, alert Eye Exam: PERRL/EOMI Ears, Nose, Throat Exam: pharyngeal erythema, tonsillar exudate, other (Diffuse erythema pharynx. Right submandibular and cervical lymphadenopathy. No swelling floor of mild) Neck Exam: full range of motion, lymphadenopathy, No limited range of motion, No midline tenderness Respiratory Exam: normal breath sounds, lungs clear Cardiovascular Exam: normal heart sounds, tachycardia Back Exam: normal inspection, normal range of motion Extremity Exam: normal inspection Neurologic Exam: alert, oriented x 3, cooperative Skin Exam: normal color Lymphatic Exam: adenopathy SpO2 Interpretation: normal SpO2: 95 O2 Delivery: Room Air Lab/Rad Data: Laboratory Results 01/17/21 Range/Units 08:40 Group A Strep Antibody NOT DETECTED (NEGATIVE) - Progress Progress: unchanged Air Movement: good Progress Note: 01/17/21 Has pharyngitis, will treat with Augmentin. Outpatient follow-up recommended. Discussed signs symptoms of worsening needing return to ER which she seemed understanding. Blood Culture(s) Obtained: No Antibiotics given: Yes Counseled pt/family regarding: diagnosis, need for follow-up - Departure Departure Disposition: Home Clinical Impression: Pharyngitis Qualifiers: Pharyngitis/tonsillitis etiology: unspecified etiology Qualified Code(s): J02.9 - Acute pharyngitis, unspecified Condition: Stable Critical Care Time: No Referrals: DIANA GARCIA [Primary Care Provider] - (1-2 days for re evaluation) Instructions: Sore Throat, Adult (DC) Additional Instructions: Tylenol/Ibuprofen as needed for pain. Warm salt water gargles. Follow-up with primary care for reevaluation. Return to ER for worsening sore throat, difficulty breathing swallowing or if develop fever chills etc. Prescriptions: Amoxicillin/Potassium Clav [Augmentin 875-125 Tablet] 875 mg PO BID #20 tablet
[2021-01-17 08:42] VITALS: BP 156/105; PULSE 91
[2021-01-17 09:11] VITALS: O2SAT 95
== END 2021-01-17 08:50 | disposition home or self-care (01) ==
LOC: ED 08:14
DX: J02.9 Acute pharyngitis, unspecified (principal)
CPT/HCPCS: 87651; 99283

== ENCOUNTER 2023-07-25 14:09 | Emergency (ER) | payer BC ==
--- NOTE | 2023-07-25 14:14 | ERPHSYRPT ---
- History of Present Illness Time Seen by Provider: 07/25/23 14:14 Historian: patient, family Exam Limitations: no limitations Physician History: This is a morbidly obese 47-year-old white female patient of Dr. Raygoza and has known that she has had umbilical hernia for approximately 6 months. Approxi-1 week ago she felt up "pop" sensation. Pain was present. However in the last 2 days the pain has worsened. She took Pepcid and ibuprofen today without relief of her pain. She has had no vomiting. She denies chest pain. She denies shortness of breath. Patient has a history of depression and anxiety. Timing/Duration: week(s) (1), worse (The last 2 days) Activities at Onset: none Quality: burning, sharpness, stabbing, throbbing Abdominal Pain Onset Location: periumbilical Pain Radiation: no radiation Severity of Pain-Max: moderate Severity of Pain-Current: moderate Modifying Factors: Improves With: nothing Associated Symptoms: No chest pain, No loss of appetite, No nausea, No shortness of breath, No vomiting Previous symptoms: no prior history, no recent treatment Allergies/Adverse Reactions: cephalexin monohydrate [From Keflex] Allergy (Severe, Verified 07/25/23 14:20) Hives Iodinated Contrast Media [Iodinated Contrast Media - IV Dye] Allergy (Severe, Verified 07/25/23 14:20) Hives tramadol Allergy (Severe, Verified 07/25/23 14:20) Hives Home Medications: ALPRAZolam 1 MG [Xanax 1 mg] 0.5 tablet PO Q12H PRN PRN 08/04/15 [History] Ropinirole HCl 3 mg PO HS 07/25/23 [History] Venlafaxine HCl [Effexor Xr] 150 mg PO DAILY 07/25/23 [History] Hx Tetanus, Diphtheria Vaccination/Date Given: Yes Hx Influenza Vaccination/Date Given: Yes Hx Pneumococcal Vaccination/Date Given: No Travel Risk - International Travel Have you traveled outside of the country in past 3 weeks: No - Coronavirus Screening Are you exhibiting any of the following symptoms?: No Close contact with a COVID-19 positive Pt in past 14-21 Days: No - Vaccine Status Have you recieved a Covid-19 vaccination: No - Review of Systems Constitutional: No Symptoms Eyes: No Symptoms Ears, Nose, & Throat: No Symptoms Respiratory: No Symptoms Abdominal/Gastrointestinal: Abdominal Pain (Localized at the periumbilical region), No Nausea, No Vomiting, No Diarrhea, No Constipation Genitourinary Symptoms: No Symptoms Musculoskeletal: No Symptoms Skin: No Symptoms Neurological: No Symptoms Psychological: No Symptoms Endocrine: No Symptoms Hematologic/Lymphatic: No Symptoms Immunological/Allergic: No Symptoms All Other Systems: Reviewed and Negative - Past Medical History Pertinent Past Medical History: Yes Neurological History: No Pertinent History ENT History: No Pertinent History Cardiac History: No Pertinent History Respiratory History: No Pertinent History Endocrine Medical History: No Pertinent History Musculoskeletal History: No Pertinent History GI Medical History: No Pertinent History History: Other Psycho-Social History: Depression Female Reproductive Disorders: No Pertinent History Other Medical History: kidney stones, UTIs - Past Surgical History Past Surgical History: Yes Neuro Surgical History: No Pertinent History Cardiac: No Pertinent History Respiratory: No Pertinent History Gastrointestinal: Cholecystectomy Genitourinary: Other Musculoskeletal: No Pertinent History Female Surgical History: Hysterectomy Other Surgical History: hysterectomy 2004 chol 2006 urinary stent 2007. cyst on bone on eyebrow - Social History Smoking Status: Current every day smoker How long have you smoked: 15 years Exposure to second hand smoke: No Drug Use: none Patient Lives Alone: No - Nursing Vital Signs Nursing Vital Signs: Initial Vital Signs Temperature 98.6 F 07/25/23 14:10 Pulse Rate 78 07/25/23 14:10 Respiratory Rate 20 07/25/23 14:10 Blood Pressure 142/105 07/25/23 14:10 O2 Sat by Pulse Oximetry 95 07/25/23 14:10 Pain Scale Pain Intensity 9 - Physical Exam General Appearance: no apparent distress, alert, anxiety, obese Eye Exam: PERRL/EOMI, eyes nml inspection Ears, Nose, Throat Exam: normal ENT inspection, moist mucous membranes Neck Exam: normal inspection, non-tender, supple, full range of motion Respiratory Exam: normal breath sounds, lungs clear, airway intact, No chest tenderness, No respiratory distress Cardiovascular Exam: regular rate/rhythm, normal heart sounds, normal peripheral pulses Gastrointestinal/Abdomen Exam: soft, normal bowel sounds, tenderness (The umbilicus), hernia (Umbilical hernia. Attempted to reduce this hernia. However, patient had significant tenderness. 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 tested, normal mood/affect, nml cerebellar function, nml station & gait, sensation nml Skin Exam: normal color, warm, dry Lymphatic Exam: No adenopathy SpO2 Interpretation: normal O2 Delivery: Room Air - Course Nursing assessment & vital signs reviewed: Yes Ordered Tests: Active Orders 24 hr Category Date Time Status IV Insertion STAT Care 07/25/23 15:16 Active ABDOMEN AND PELVIS W/0 CONTRAS [CT] Stat Exams 07/25/23 15:17 Completed AMYLASE Stat Lab 07/25/23 15:44 Completed CBC W DIFF Stat Lab 07/25/23 15:44 Completed CMP Stat Lab 07/25/23 15:44 Completed CULTURE,URINE Stat Lab 07/25/23 15:18 Received LIPASE Stat Lab 07/25/23 15:44 Completed Lactic Acid Stat Lab 07/25/23 15:16 Completed UA W/RFX UR CULTURE Stat Lab 07/25/23 15:18 Completed Medication Summary Discontinued Medications Generic Name Dose Route Start Last Admin Trade Name Freq PRN Reason Stop Dose Admin Hydromorphone HCl 1 mg 07/25/23 15:16 07/25/23 15:35 Hydromorphone 1 Mg/1ml Inj IV 07/25/23 15:17 1 mg STAT ONE Administration Hydromorphone HCl Confirm 07/25/23 15:34 Hydromorphone 1 Mg/1ml Inj Administered 07/25/23 15:35 Dose 1 mg .ROUTE .STK-MED ONE Ondansetron HCl 4 mg 07/25/23 15:16 07/25/23 15:35 Ondansetron Hcl 4 Mg/2 Ml Vial IV 07/25/23 15:17 4 mg STAT ONE Administration Ondansetron HCl Confirm 07/25/23 15:34 Ondansetron Hcl 4 Mg/2 Ml Vial Administered 07/25/23 15:35 Dose 4 mg .ROUTE .STK-MED ONE Lab/Rad Data: Laboratory Result Diagrams 07/25/23 15:44 07/25/23 15:44 Laboratory Results 07/25/23 07/25/23 07/25/23 Range/Units 15:44 15:44 15:18 WBC 7.4 (4.0-10.5) x10^3/uL RBC 4.10 (4.1-5.4) x10^6/uL Hgb 12.5 (12.0-16.0) g/dL Hct 37.9 (35-47) % MCV 92.4 (78-100) fL MCH 30.5 (26-32) pg MCHC 33.0 (32-36) g/dL RDW 12.3 (11.5-14.0) % Plt Count 273 (150-450) x10^3/uL MPV 9.7 (7.5-11.0) fL Gran % 56.0 (36.0-66.0) % Immature Gran % (Auto) 0.3 (0.00-0.4) % Nucleat RBC Rel Count 0.0 (0.00-0.1) % Eos # (Auto) 0.31 (0-0.5) x10^3/uL Immature Gran # (Auto) 0.02 (0.00-0.03) x10^3u/L Absolute Lymphs (auto) 2.13 (1.0-4.6) x10^3/uL Absolute Monos (auto) 0.72 (0.0-1.3) x10^3/uL Absolute Nucleated RBC 0.00 (0.00-0.01) x10^3u/L Lymphocytes % 29.0 (24.0-44.0) % Monocytes % 9.8 (0.0-12.0) % Eosinophils % 4.2 (0.00-5.0) % Basophils % 0.7 (0.0-0.4) % Absolute Granulocytes 4.12 (1.4-6.9) x10^3/uL Basophils # 0.05 (0-0.4) x10^3/uL Sodium 137 (137-145) mmol/L Potassium 3.4 L (3.5-5.1) mmol/L Chloride 100 (98-107) mmol/L Carbon Dioxide 31 H (22-30) mmol/L Anion Gap 10.6 (5-15) MEQ/L BUN 7 (7-17) mg/dL Creatinine 0.59 (0.52-1.04) mg/dL Estimated GFR 112.5 ML/MIN Glucose 92 (74-106) mg/dL Lactic Acid (0.4-2.0) Calcium 9.0 (8.4-10.2) mg/dL Total Bilirubin 0.40 (0.2-1.3) mg/dL AST 23 (14-36) U/L ALT 19 (0-35) U/L Alkaline Phosphatase 91 (38-126) U/L Serum Total Protein 6.9 (6.3-8.2) g/dL Albumin 3.8 (3.5-5.0) g/dL Amylase 45 (30-110) U/L Lipase 31 (23-300) U/L Urine Color Yellow (Yellow) Urine Appearance Cloudy A (Clear) Urine pH 7.5 (4.6-8.0) Ur Specific [place] <=1.005 (1.005-1.030) Urine Protein Negative (Negative) Urine Glucose (UA) Negative (Negative) mg/dL Urine Ketones Negative (Negative) Urine Blood Negative (Negative) Urine Nitrite Negative (Negative) Urine Bilirubin Negative (Negative) Urine Urobilinogen 0.2 (0.2) mg/dL Ur Leukocyte Esterase Moderate A (Negative) U Hyaline Cast (Auto) NONE SEEN (0-2) /LPF Urine Microscopic RBC 0-2 (0-5) /HPF Urine Microscopic WBC 21-50 A (0-5) /HPF Ur Epithelial Cells Rare (None Seen) /HPF Urine Bacteria Many A (None Seen) /HPF Urine Culture Reflexed YES (NO) 07/25/23 Range/Units 15:16 WBC (4.0-10.5) x10^3/uL RBC (4.1-5.4) x10^6/uL Hgb (12.0-16.0) g/dL Hct (35-47) % MCV (78-100) fL MCH (26-32) pg MCHC (32-36) g/dL RDW (11.5-14.0) % Plt Count (150-450) x10^3/uL MPV (7.5-11.0) fL Gran % (36.0-66.0) % Immature Gran % (Auto) (0.00-0.4) % Nucleat RBC Rel Count (0.00-0.1) % Eos # (Auto) (0-0.5) x10^3/uL Immature Gran # (Auto) (0.00-0.03) x10^3u/L Absolute Lymphs (auto) (1.0-4.6) x10^3/uL Absolute Monos (auto) (0.0-1.3) x10^3/uL Absolute Nucleated RBC (0.00-0.01) x10^3u/L Lymphocytes % (24.0-44.0) % Monocytes % (0.0-12.0) % Eosinophils % (0.00-5.0) % Basophils % (0.0-0.4) % Absolute Granulocytes (1.4-6.9) x10^3/uL Basophils # (0-0.4) x10^3/uL Sodium (137-145) mmol/L Potassium (3.5-5.1) mmol/L Chloride (98-107) mmol/L Carbon Dioxide (22-30) mmol/L Anion Gap (5-15) MEQ/L BUN (7-17) mg/dL Creatinine (0.52-1.04) mg/dL Estimated GFR ML/MIN Glucose (74-106) mg/dL Lactic Acid 1.4 (0.4-2.0) Calcium (8.4-10.2) mg/dL Total Bilirubin (0.2-1.3) mg/dL AST (14-36) U/L ALT (0-35) U/L Alkaline Phosphatase (38-126) U/L Serum Total Protein (6.3-8.2) g/dL Albumin (3.5-5.0) g/dL Amylase (30-110) U/L Lipase (23-300) U/L Urine Color (Yellow) Urine Appearance (Clear) Urine pH (4.6-8.0) Ur Specific [place] (1.005-1.030) Urine Protein (Negative) Urine Glucose (UA) (Negative) mg/dL Urine Ketones (Negative) Urine Blood (Negative) Urine Nitrite (Negative) Urine Bilirubin (Negative) Urine Urobilinogen (0.2) mg/dL Ur Leukocyte Esterase (Negative) U Hyaline Cast (Auto) (0-2) /LPF Urine Microscopic RBC (0-5) /HPF Urine Microscopic WBC (0-5) /HPF Ur Epithelial Cells (None Seen) /HPF Urine Bacteria (None Seen) /HPF Urine Culture Reflexed (NO) - Progress Progress: improved, pain not gone completely, re-examined Progress Note: 07/25/23 15:15 This patient's medical issue is 1 of moderate complexity. The level of complexity in the workup performed is based on review the patient's past medical history, review of the patient's medication list, review of the patient's drug allergy list, history of present illness and physical findings on examination. This patient's workup includes placement of intravenous line, infusion of Dilaudid 1 mg, infusion of Zofran 4 mg intravenously, CBC, CMP, amylase and lipase, lactic acid level, urinalysis and CT scan of the abdomen pelvis without contrast. 07/25/23 16:41 I reviewed and interpreted the patient's laboratory workup. The patient has a urinary tract infection. We will prescribe her Cipro 500 mg orally twice a day for 7 days as an outpatient. CT scan of the abdomen pelvis without contrast was interpreted by the radiologist and I reviewed the interpretation. This patient has an enlarging, moderate sized fatty umbilical hernia with minimal stranding presumed inflammatory. The noncontrasted stomach and bowel loops are nonobstructed. There is no evidence of free air or free fluid. There is mild aortoiliac calcifications without abdominal aortic aneurysm. 07/25/23 16:46 Patient is afebrile, patient has not had any nausea or vomiting symptoms, there is no evidence of obstructed bowel on the CT scan of abdomen pelvis, there are no skin changes at the site of the umbilical hernia, patient's white count is normal. Counseled pt/family regarding: lab results, diagnosis, need for follow-up, rad results Medical Desision Making - Independent Historian Additional History obtained from: Mother - Diagnostic Testing Diagnostic test were ordered, analyzed, and reviewed by me: Yes Radiological Interpretation: Reviewed by me, Teleradiologist Report - Risk of complications The pt has a mod risk of morbidity or mortality based on: Need for prescription drug management - Departure Departure Disposition: Home Clinical Impression: Umbilical hernia without obstruction or gangrene, UTI (urinary tract infection) Condition: Stable Critical Care Time: No Referrals: TEGAN RAYGOZA MD [Primary Care Provider] - Follow up/PCP as directed Additional Instructions: Drop your diet back to clear liquids and then advance her diet slowly. Call your primary care physician tomorrow, 07/26/2023, to obtain a referral to a general surgeon to address the umbilical hernia that is present. Take your antibiotics and other medications as prescribed. Prescriptions: Hydrocodone/APAP 5/325 [[place] 5/325 mg] 1 each PO Q8H PRN PRN #6 tablet MDD 3 PRN Reason: Pain Ciprofloxacin [Cipro 500 MG] 500 mg PO BID #14 tablet
[2023-07-25 14:43] VITALS: TEMP 98.6
[2023-07-25] MEDS ORDERED: Zofran 4 MG/2 ML VIAL IV ONE (15:16)
[2023-07-25] MEDS ORDERED: Hydromorphone 1 mg/ml Injection IV ONE ×2 (15:16→17:25)
[2023-07-25] MEDS ORDERED: Zofran 4 MG/2 ML VIAL ONE (15:34)
[2023-07-25] MEDS ORDERED: Hydromorphone 1 mg/ml Injection ONE ×2 (15:34→17:06)
[2023-07-25 15:45] LABS: Absolute Neutrophil Ct (ANC) 4.12 x10^3/uL (1.4-6.9); BASOPHIL % 0.7 % (0.0-0.4); Basophil (Absolute #) 0.05 x10^3/uL (0-0.4); Eosinophil % 4.2 % (0.00-5.0); Eosinophil (Absolute #) 0.31 x10^3/uL (0-0.5); Hematocrit 37.9 % (35-47); Hemoglobin 12.5 g/dL (12.0-16.0); IMMATURE GRAN # 0.02 x10^3u/L (0.00-0.03); IMMATURE GRAN % 0.3 % (0.00-0.4); Lymphocyte (Absolute #) 2.13 x10^3/uL (1.0-4.6); Mean Cell Volume 92.4 fL (78-100); Mean Corpuscular Hemoglobin 30.5 pg (26-32); Mean Platelet Volume 9.7 fL (7.5-11.0); Monocyte (Absolute #) 0.72 x10^3/uL (0.0-1.3); Monocytes % 9.8 % (0.0-12.0); Platelet Count 273 x10^3/uL (150-450); Red Cell Distribution Width 12.3 % (11.5-14.0); White Blood Count 7.4 x10^3/uL (4.0-10.5)
[2023-07-25 15:51] LABS: ALBUMIN 3.8 g/dL (3.5-5.0); ANION GAP 10.6 MEQ/L (5-15); BILIRUBIN,TOTAL 0.4 mg/dL (0.2-1.3); Creatinine 1 0.59 mg/dL (0.52-1.04); EST GLOMERULAR FILTRATION RATE 112.5 ML/MIN; Potassium 3.4 mmol/L (3.5-5.1); Total Protein 6.9 g/dL (6.3-8.2)
[2023-07-25 15:52] LABS: Appearance Cloudy (Clear); Bacteria Many /HPF (None Seen); Bilirubin Negative (Negative); Blood Negative (Negative); Epithelial Cells Rare /HPF (None Seen); Glucose, Urine Negative (Negative); Hyaline Casts NONE SEEN /LPF (0-2); Ketones Negative (Negative); Leukocyte Esterase Moderate (Negative); Nitrite Negative (Negative); Ph 7.5 (4.6-8.0); Protein,Urine Dip Negative (Negative); RBC 0-2 /HPF (0-5); Specific Gravity <=1.005 (1.005-1.030); Urobilinogen 0.2 mg/dL (0.2); WBC 21-50 /HPF (0-5)
[2023-07-25 15:57] LABS: ADD URINE CULTURE? YES (NO)
--- NOTE | 2023-07-25 16:29 | XRAY ---
Indication: Umbilical pain. Multiple contiguous axial images obtained through abdomen and pelvis without contrast. Comparison: September 15, 2017 Lung bases demonstrates mild dependent atelectasis. Stable benign left lower lobe noncalcified micronodule. Heart not enlarged. Noncontrasted stomach and bowel loops nonobstructed. Again cholecystectomy, hysterectomy, and appendectomy. No free fluid/air. Remaining liver, pancreas, spleen, adrenal glands, kidneys, ureters, and bladder are unremarkable for noncontrast exam. Again mild aortoiliac calcifications without AAA. Osseous structures intact again with mild degenerative changes throughout the visualized spine. Enlarging moderate size fatty umbilical hernia with minimal stranding presumed inflammatory. No inguinal hernias. Impression: 1. Enlarging fatty umbilical hernia with minimal stranding presumed inflammatory. 2. Again chronic findings including benign left lower lobe noncalcified nodule, arteriosclerotic disease, and chronic bony findings. 2. Remaining CT abdomen/pelvis without contrast exam is negative.
[2023-07-25 17:13] VITALS: BP 120/77; PULSE 80; RESP 18; O2SAT 95
== END 2023-07-25 17:32 | disposition home or self-care (01) ==
LOC: ED 14:09
DX: K42.9 Umbilical hernia without obstruction or gangrene (principal); N39.0 Urinary tract infection, site not specified; R10.33 Periumbilical pain; Z79.891 Long term (current) use of opiate analgesic; Z79.899 Other long term (current) drug therapy; Z28.310 Unvaccinated for COVID-19; Z72.0 Tobacco use
CPT/HCPCS: 36000; 36415; 74176; 80053; 81001; 82150; 83605; 83690; 85025; 87077; 87086; 87186; 96374; 96375; 99284; J1170; J2405